=== PATIENT | male | born 1955 ===

== ENCOUNTER 2022-08-12 07:17 | Day surgery (SDC) | payer MEDICARE ==
[2022-08-09 13:51] VITALS: BMI 29.8
[2022-08-12] MEDS ORDERED: PROPOFOL 40 ML ONE (08:04)
[2022-08-12] MEDS ORDERED: Lidocaine 1% PF 5 ML VIAL ONE (08:06)
== END 2022-08-12 09:46 | disposition home or self-care (01) ==
LOC: CSHSDC 07:17
PROVIDERS: ATTEND Internal Medicine Gastroenterology
PROC: 0DBN8ZZ Excision of Sigmoid Colon, Via Natural or Artificial Opening Endoscopic (ICD-10-PCS; principal; 2022-08-12)
DX: Z12.11 Encounter for screening for malignant neoplasm of colon (principal); K63.5 Polyp of colon; K57.30 Diverticulosis of large intestine without perforation or abscess without bleeding; I10 Essential (primary) hypertension; E78.5 Hyperlipidemia, unspecified; E03.9 Hypothyroidism, unspecified; E11.9 Type 2 diabetes mellitus without complications; Z86.010 Personal history of colon polyps; Z79.899 Other long term (current) drug therapy
CPT/HCPCS: 88305; J2704